=== PATIENT | female | born 1955 | race Caucasian/White ===

== ENCOUNTER 2016-12-12 12:39 | Day surgery (SDC) | payer OTHER ==
[~2016-12-12] VITALS: Ht 172.7 cm; Wt 95.0 kg
[2016-12-12 14:51] VITALS: Ht 172.7 cm; Wt 95.0 kg
[2016-12-12] MEDS ORDERED: FLUO20CA38 PO (15:13)
[2016-12-12] MEDS ORDERED: CYCL1DRO BOTH EYES (15:13)
[2016-12-12] MEDS ORDERED: GABA300C16 PO (15:13)
[2016-12-12] MEDS ORDERED: BUSP10TA2 PO (15:13)
[2016-12-12] MEDS ORDERED: CETI10TA34 PO (15:13)
[2016-12-12] MEDS ORDERED: DIVA250T60 PO (15:13)
[2016-12-12] MEDS ORDERED: LAMO100T83 PO (15:13)
[2016-12-12 16:21] VITALS: BP 107/62; PULSE 55; RESP 20
[2016-12-12] MEDS ORDERED: MIDAZOLAM 1 MG/ML 2 ML INJ ONE ×4 (17:02→17:03)
[2016-12-12] MEDS ORDERED: FENTAnyl 50 MCG/ML VIAL ONE (17:02)
[2016-12-12] MEDS ORDERED: ATROPINE 1 MG/10 ML SYRINGE ONE ×2 (17:04)
[2016-12-12 17:31] VITALS: BP 92/58; PULSE 54; RESP 12
--- NOTE | 2017-01-05 15:06 | GILP ---
DATE OF PROCEDURE: 12/12/2016 PROCEDURE: Colonoscopy with biopsies. BRIEF HISTORY AND INDICATIONS: The patient is being evaluated for unexplained diarrhea. PREMEDICATION: Monitored anesthesia care by anesthesiologist. SURGEON: Luca Busby MD INSTRUMENT USED: Olympus colonoscope. PREPARATION: Was adequate. TECHNIQUE: After informed consent, with the patient/relatives understanding the procedure, its indic ations potential risks and complications, including but not limited to: allergic reaction, bleeding, perforation, infection, missed lesions and after all pertinent questions were answered to the patie nt's satisfaction, the patient/relatives signed the witnessed informed consent. Following this, premedication was administered slowly IV push by under careful cardiovascular and re spiratory monitoring with pulse oximetry, automatic blood pressure and quality assurance monitor body. Once the sedativ e effect was achieved, the patient was placed in the left lateral decubitus position, digital rectal examination was performed. The colonoscope was then introduced and advanced under visual control th roughout all segments of the colon including: the rectum, sigmoid, descending colon, splenic flexure , transverse colon, hepatic flexure, ascending colon and finally reaching the cecum which was clearl y identified by transillumination, finger indentation and the ileocecal valve. Careful examination o f the mucosa of the lower gastrointestinal tract both on insertion as well as withdrawal of the inst rument disclosed the following findings: Rectal Examination: No evidence of perirectal disease, no masses. Colonic Mucosa: The mucosa of all segments of the colon appears within normal limits. There is no ev idence of inflammatory changes, diverticular formation, polyps or other neoplasms, vascular malforma tion, or any other abnormality. Entirely unremarkable in colon and terminal ileum. Random biopsie s were obtained on the right and left side of the colon to rule out microscopic lymphocytic localize d Crohn's colitis. Moderate sized internal hemorrhoids are present. IMPRESSION: 1. Normal mucosa in the colon and terminal ileum. 2. Random biopsies of right and left colon to rule out microscopic lymphocytic or collagenous colit is. PLAN: Pathology will be reviewed as soon as available. Further recommendation will depend on the p atient's clinical course as well as review of biopsies. Dictated By: LUCA BUSBY MS/SHANEKA Conf#: [id number] DID#: [id number]
== END 2016-12-12 19:25 | disposition home or self-care (01) ==
LOC: GIL 12:39
PROVIDERS: ATTEND Internal Medicine Gastroenterology
DX: K52.832 Lymphocytic colitis (principal)
CPT/HCPCS: 43239; 88305; J0461; J2250; J3010